=== PATIENT | male | born 1970 | race Hispanic/Latino ===

== ENCOUNTER 2019-05-07 07:52 | Emergency (ER) | payer BC ==
[2019-05-07] MEDS ORDERED: SODIUM CHLORIDE 0.9% (FLUSH) 10 ML SYG IV PRN (08:10)
[2019-05-07] MEDS ORDERED: ONDANSETRON INJ 4 MG/2 ML VIAL IV ONE (08:10)
--- NOTE | 2019-05-07 08:10 | ED.PDOC ---
History of Present Illness - General Chief Complaint: Abdominal Pain Stated Complaint: RUQ pain x couple months, worse over last 3 days Time Seen by Provider: 05/07/19 08:08 - History of Present Illness Initial Comments: 48M w/out PMHx presents w 6mo hx of intermitted sharp RUQ abd pain, now progressing over a week, has become constant and more severe over the last 24 hours. also w/ prod cough, chills, nausea. no documented fever, no tx attempted. Allergies/Adverse Reactions: Allergies NO KNOWN ALLERGY Allergy (Verified 05/07/19 08:10) Home Medications: Ambulatory Orders Cefixime 400 mg PO BID #14 cap 05/07/19 Ondansetron Odt [Zofran ODT] 4 mg PO Q6H PRN #10 tab 05/07/19 Tramadol HCl [Ultram] 50 mg PO Q6H PRN #15 tab 05/07/19 Review of Systems - Review of Systems Review of Systems: 05/07/19 08:34 General: Denies generalized weakness, fever, arthralgia/myalgia, does have chills HEENT: Denies sore throat, rhinorrhea Cardiovascular: Denies chest pain, palpitations Respiratory: Denies SOB, has cough Gastrointestinal: has abdominal pain, no vomiting, diarrhea : Denies dysuria, frequency Musculoskeletal: Denies extremity pain, extremity swelling Integument: Denies rash, itching Neuro: Denies focal weakness or numbness Psych: Denies depression, hallucinations. Family Medical History - Family History Paternal Grandparents Living Status: Hx Family Diabetes: Yes Hx Family Cancer: Yes - Breast Physical Exam - Physical Exam Comments: General Appearance: Patient is awake and alert. Skin: Warm and dry. No diaphoresis. No rash or other lesions. Head: Normocephalic/atraumatic. Eyes: PERRL, lids, conjunctiva and sclera unremarkable. EOMI intact. ENT: No nasal discharge. Oropharynx. Without erythema, exudate, lesions. Moist mucous membranes. Neck: Supple. No LAD. No tenderness. No JVD noted. Respiratory: Normal rate and effort. Breath sounds clear bilaterally. Cardiovascular: Regular rate. Heart sounds normal. No murmur. GI: Abdomen soft, non-distended with a focal area of discomfort in the RUQ area, medial. neg Leon's. No rebound/guarding. Bowel sounds normal. Back: No tenderness Musculoskeletal: Extremities- Normal range of motion. No effusion, cyanosis, edema. Neurological: Alert. No facial palsy. Speech clear. Gag intact. No motor deficit, str symmetric. No sensory deficit. Progress - Progress Progress: 05/07/19 08:33 Vital Signs - 24 hr 05/07/19 07:55 Temperature 96.4 F L Pulse Rate [ 65 Pulse ox] Respiratory 18 Rate Blood Pressure 113/82 [L brachial] O2 Sat by Pulse 99 Oximetry 05/07/19 11:40 patient is feeling much better after medications, tolerating PO, ambulating. Have discussed results with Gen Harper, Dr. Howard and patient and family, all parties are comfortable with a dose of antibiotics here, trial of home observation, with close follow-up in the office tomorrow. ED warnings given. - Results/Orders Results/Orders: 05/07/19 08:10 Sodium Chloride 0.9% (Flush) [Saline Flush Syringe] 10 ml IV PRN PRN 05/07/19 09:19 Hold Metformin x 48Hrs [id number] 05/07/19 11:33 cefTRIAXone SODIUM [Rocephin] 2 gm Sodium Chl 0.9% 100Ml Mini-Bag [NS 100ml MINI-BAG+] 100 ml IVPB ONCE 05/07/19 11:38 URINALYSIS Stat Laboratory Results WBC 6.2 K/mm3 (4.8-10.8) 05/07/19 08:22 RBC 5.48 M/mm3 (4.70-6.10) 05/07/19 08:22 Hgb 15.6 gm/dL (14.0-18.0) 05/07/19 08:22 Hct 45.7 % (42.0-52.0) 05/07/19 08:22 MCV 83.4 fl (80.0-94.0) 05/07/19 08:22 MCH 28.5 pg (27.0-31.0) 05/07/19 08:22 MCHC 34.2 g/dL (33.0-37.0) 05/07/19 08:22 RDW 13.1 % (11.5-14.5) 05/07/19 08:22 Plt Count 176 K/mm3 (130-400) 05/07/19 08:22 MPV 8.4 fl (7.40-10.4) 05/07/19 08:22 Absolute Neuts (auto) 4.40 K/uL (1.8-6.8) 05/07/19 08:22 Absolute Lymphs (auto) 1.30 K/uL (1.0-3.4) 05/07/19 08:22 Absolute Monos (auto) 0.50 K/uL (0.2-0.8) 05/07/19 08:22 Absolute Eos (auto) 0.00 K/uL (0.0-0.4) 05/07/19 08:22 Absolute Basos (auto) 0.00 K/uL (0.0-0.1) 05/07/19 08:22 Neutrophils % 71.1 % (42.0-78.0) 05/07/19 08:22 Lymphocytes % 20.5 % (20.0-50.0) 05/07/19 08:22 Monocytes % 7.9 % (2.0-9.0) 05/07/19 08:22 Eosinophils % 0.2 % (1.0-5.0) L 05/07/19 08:22 Basophils % 0.3 % (0.0-2.0) 05/07/19 08:22 Sodium 136 mmol/L (135-145) 05/07/19 08:22 Potassium 3.6 mmol/L (3.6-5.0) 05/07/19 08:22 Chloride 97 mmol/L (101-111) L 05/07/19 08:22 Carbon Dioxide 28 mmol/L (21-31) 05/07/19 08:22 Anion Gap 14.6 (12-18) 05/07/19 08:22 BUN 14 mg/dL (7-18) 05/07/19 08:22 Creatinine 0.85 mg/dL (0.6-1.3) 05/07/19 08:22 BUN/Creatinine Ratio 16.5 (10-20) 05/07/19 08:22 Random Glucose 115 mg/dL (70-105) H 05/07/19 08:22 Serum Osmolality 273.3 mOsm/L (275-295) L 05/07/19 08:22 Calcium 9.2 mg/dL (8.4-10.2) 05/07/19 08:22 Total Bilirubin 0.9 mg/dL (0.2-1.0) 05/07/19 08:22 Direct Bilirubin 0.2 mg/dL (0-0.2) 05/07/19 08:22 Indirect Bilirubin 0.7 mg/dL (0.2-0.8) 05/07/19 08:22 AST 66 IU/L (10-42) H 05/07/19 08:22 ALT 151 IU/L (10-60) H 05/07/19 08:22 Alkaline Phosphatase 64 IU/L (42-121) 05/07/19 08:22 Serum Total Protein 7.9 gm/dL (6.4-8.2) 05/07/19 08:22 Albumin 4.0 g/dl (3.2-5.5) 05/07/19 08:22 Lipase 30 U/L (22-51) 05/07/19 08:22 CT scan w/ gallbladder hydrops, stones including one at the neck, no wall edema. Departure - Departure Clinical Impression: Abdominal pain, Cholecystitis, Cholelithiasis Disposition: Discharge to Home or Self Care Condition: Good Departure Forms: ED Discharge - Pt. Copy, Patient Portal Self Enrollment Instructions: DI for Abdominal Pain-Adult Referrals: Jose Alberto Howard MD [Active Staff] - 05/08/19 1:00 pm Prescriptions: Cefixime 400 mg PO BID #14 cap Ondansetron Odt [Zofran ODT] 4 mg PO Q6H PRN #10 tab PRN Reason: Nausea Tramadol HCl [Ultram] 50 mg PO Q6H PRN #15 tab PRN Reason: Pain Home Medications: Ambulatory Orders Cefixime 400 mg PO BID #14 cap 05/07/19 Ondansetron Odt [Zofran ODT] 4 mg PO Q6H PRN #10 tab 05/07/19 Tramadol HCl [Ultram] 50 mg PO Q6H PRN #15 tab 05/07/19
[2019-05-07] MEDS ORDERED: MORPHINE SULFATE INJ 10 MG/ML VIAL IV ONE (08:11)
[2019-05-07 08:17] VITALS: TEMP 96.4
[2019-05-07] MEDS ORDERED: traMADol HCL 50 MG TAB PO ONE ×2 (10:25→12:28)
--- NOTE | 2019-05-07 10:50 | CT ---
PROCEDURE: CT Abdomen and Pelvis With Intravenous Contrast CLINICAL INDICATION: The patient is 48 years old and is Male; MEP, RUQ pain for months, now persist, tender MAIN TECHNIQUE: Axial computed tomography images of the abdomen and pelvis with intravenous contrast. Sagittal and coronal reformatted images were created and reviewed. This CT exam was performed using one or more of the following dose reduction techniques: automated exposure control, adjustment of the mA and/or kV according to patient size, and/or use of iterative reconstruction technique. COMPARISON: No relevant prior studies available. FINDINGS: LUNG BASES: Lung bases are unremarkable. ABDOMEN: LIVER: Hepatic steatosis is identified. Within segment 7, abutting the posterior capsule, there is a 1.8 cm discontiguously peripherally enhancing lesion which is almost undoubtedly a benign hemangioma. Within the medial inferior liver tip, there is a 1.6 cm lesion which also has the appearance of a small benign hemangioma. GALLBLADDER AND BILE DUCTS: There is marked and severe gallbladder hydrops. There are large calcified gallstones in the fundus and at the gallbladder neck. No pericholecystic inflammation. PANCREAS: There are mild fatty involutional changes of the pancreas. NO findings to suggest pancreatitis. SPLEEN: Unremarkable. No splenomegaly. No splenic lesion noted. ADRENALS: Unremarkable. No mass. KIDNEYS AND URETERS: Unremarkable. No solid mass. No hydronephrosis. STOMACH AND BOWEL: There is oral contrast within the stomach. There is no evidence of diverticulitis. There is no evidence of bowel obstruction. PELVIS: APPENDIX: The appendix is visualized and is normal in appearance. BLADDER: The urinary bladder is underdistended. It appears to be mildly thick-walled, however. REPRODUCTIVE: Unremarkable as visualized. ABDOMEN and PELVIS: INTRAPERITONEAL SPACE: Unremarkable. No free air. No significant fluid collection. BONES/JOINTS: There are bilateral pars defects at L5-S1 with associated spondylolisthesis SOFT TISSUES: There is rectus diastases of the anterior abdominal wall. Bilateral fat-containing inguinal hernias are noted. VASCULATURE: Unremarkable. No abdominal aortic aneurysm. LYMPH NODES: Unremarkable. No significant retroperitoneal or pelvic lymphadenopathy. IMPRESSION: There is marked and severe gallbladder hydrops. There are large calcified gallstones in the fundus and at the gallbladder neck. No pericholecystic inflammation. However, I am still concerned for acute cholecystitis. Confirmation could be obtained with HIDA scan if necessary. Electronically signed by: Jerald Mackay MD 05/07/2019 10:48 AM OBSTETRICS SCRUB NURSE
[2019-05-07] MEDS ORDERED: cefTRIAXone SODIUM 2 GM in SODIUM CHL 0.9% 100ML MINI-BAG 100 ML IVPB ONE (11:33)
[2019-05-07] MEDS ORDERED: SODIUM CHL 0.9% 100ML MINI-BAG 100 ML IVPB ONE (11:38)
[2019-05-07 13:10] VITALS: BP 109/66; O2SAT 96
== END 2019-05-07 13:09 | disposition home or self-care (01) ==
LOC: ER 07:52
DX: K80.10 Calculus of gallbladder with chronic cholecystitis without obstruction (principal)
CPT/HCPCS: 36415; 74177; 80048; 80076; 81001; 83690; 85025; J0696; J2270; J2405; J7050

== ENCOUNTER 2019-05-11 05:36 | Day surgery (SDC) | payer BC ==
[2019-05-11] MEDS ORDERED: SODIUM CHLORIDE 0.9% 50 ML VIAL ONE (07:00)
[2019-05-11] MEDS ORDERED: raNITIdine HCL INJ 25 MG/ML VIAL ONE (07:00)
[2019-05-11] MEDS ORDERED: LIDOCAINE 1% 10 ML VIAL INJ ONE (07:00)
[2019-05-11] MEDS ORDERED: PROPOFOL 200 MG/20 ML VIAL IV ONE (07:00)
[2019-05-11] MEDS ORDERED: DEXAMETHASONE INJ 10 MG/ML VIAL ONE (07:00)
[2019-05-11] MEDS ORDERED: ceFAZolin SODIUM 1 GM VIAL ONE ×2 (07:02→07:03)
[2019-05-11] MEDS ORDERED: LACTATED RINGERS 1,000 ML ONE (07:02)
[2019-05-11] MEDS ORDERED: SODIUM CHL 0.9% 100ML MINI-BAG 100 ML IVPB ONE (07:02)
[2019-05-11] MEDS ORDERED: HEPARIN SODIUM (PORCINE) 10,000 UNITS/ML VIAL ONE (09:22)
[2019-05-11] MEDS ORDERED: BUPIVACAINE 0.25% W/EPI 50 ML VIAL INJ ONE (09:22)
[2019-05-11] MEDS ORDERED: DEXMEDETOMIDINE HCL 200 MCG/2 ML INJ IV ONE (09:24)
[2019-05-11] MEDS ORDERED: ROCURONIUM BROMIDE 10 MG/ML VIAL ONE ×2 (09:25→10:58)
[2019-05-11] MEDS ORDERED: KETAMINE HCL 100 MG/ML VIAL ONE (09:25)
[2019-05-11] MEDS ORDERED: fentaNYL CITRATE INJ 50 MCG/ML AMP ONE (09:25)
[2019-05-11] MEDS ORDERED: MIDAZOLAM INJ 2 MG/2 ML VIAL ONE (09:25)
[2019-05-11] MEDS ORDERED: SUGAMMADEX SODIUM 200 MG/2 ML VIAL IV ONE ×2 (09:34→14:08)
[2019-05-11] MEDS ORDERED: HEPARIN SODIUM (PORCINE) 10,000 UNITS/ML VIAL IRRIG ONE (09:51)
[2019-05-11] MEDS ORDERED: IOPROMIDE INJ 300 MG/ML 50 ML INJ ONE (09:51)
[2019-05-11] MEDS ORDERED: BUPIVACAINE 0.25% W/EPI 50 ML VIAL SUBCU ONE (09:51)
[2019-05-11] MEDS ORDERED: HYDROmorphone HCL INJ 2 MG/ML VIAL ONE ×3 (10:53→13:55)
[2019-05-11] MEDS ORDERED: ELECTROLYTE-A 1,000 ML IVS ONE (11:29)
--- NOTE | 2019-05-11 13:22 | RAD ---
EXAM DESCRIPTION: Fluoroscopy Up to 1Hr CLINICAL HISTORY: 48 years Male, IOC COMPARISON: None. FINDINGS: Total fluoroscopy time 33 seconds, 4 fluoroscopic images For fluoroscopic views of an intraoperative cholangiogram are included. Contrast injected into the cystic duct remnant fills the central intrahepatic and extra hepatic biliary ducts without filling defect or stricture. No biliary duct dilation. Contrast is present in the duodenum. IMPRESSION: Normal intraoperative cholangiogram. Electronically signed by: Nam Sexton MD 05/11/2019 1:20 PM DENTAL LABORATORY MANAGER
--- NOTE | 2019-05-11 13:59 | OP ---
DATE OF PROCEDURE: 05/11/19 PREOPERATIVE DIAGNOSIS: 1. Symptomatic cholelithiasis. 2. Fatty infiltration of the liver. POSTOPERATIVE DIAGNOSIS: 1. Symptomatic cholelithiasis. 2. Fatty infiltration of the liver. 3. Acute and chronic cholecystitis. PROCEDURE: 1. Laparoscopic cholecystectomy with intraoperative cholangiography using fluoroscopy. 2. Wedge biopsy, right lobe over liver. SURGEON: Jose Alberto Howard MD. CUSTOMER RELATIONS ASSISTANT: None. ANESTHESIA: Local infiltration of 0.25% Marcaine with epinephrine and general endotracheal anesthesia. INDICATION: The patient is a 48-year-old male who has had recent significant pain in the right upper quadrant with nausea associated with a fatty diet. There is no history of hepatitis or jaundice. CT scan in the Emergency Room revealed multiple gallstones without serious signs of acute cholecystitis. Also, probable fatty infiltration of the liver. The patient was brought to the Surgical Suite today for cholecystectomy with cholangiography and wedge biopsy of right lobe of the liver. FINDINGS: The wedge biopsy of the liver was performed and the specimen was obtained. Hemostasis was excellent in the biopsy site. The gallbladder was very thickened and edematous. There were multiple dense adhesions to the body and neck of the gallbladder. Intraoperative cholangiography revealed slow flow into the duodenum without a definite meniscus sign in the distal bile duct. There were no filling defects or strictures identified in the bile duct. The gallbladder also had multiple stones. No other pathology was identified. DESCRIPTION OF PROCEDURE: After adequate general endotracheal anesthesia was obtained, the patient was prepped and draped in the usual sterile manner. Surgical time-out was taken. The infraumbilical area was infiltrated with local anesthesia. A curvilinear incision was fashioned and carried down through the subcutaneous tissue to the midline fascia. Traction sutures were placed on either side of the midline. A small incision was made in the midline fascia and the peritoneum was opened bluntly. Sorin trocar was introduced under direct vision into the abdominal cavity and fixed in place. CO2 was then insufflated until a pressure of 12 mmHg was reached and the abdomen was tympanitic in all four quadrants. When this was done, the laparoscope was introduced. The abdomen was inspected with the previously noted findings. The patient was then placed in reverse Trendelenburg position and turned to the left side. The upper abdominal ports were placed under direct vision. The gallbladder was inspected and we began to take down adhesions. However, we could not grasp the gallbladder, so the Storz needle was introduced and 90 mL of thick, dark bile was aspirated. The gallbladder was then grasped and retracted anteriorly and laterally. The adhesions were taken down using blunt dissection and electrocautery. When this was done, eventually the neck of the gallbladder was grasped, retracted laterally. The triangle of Calot was then explored with the cystic duct identified and isolated. The cystic duct was hemoclipped once proximally. A small incision was made in the cystic duct. The cholangiogram catheter was introduced through a separate stab wound in the right upper quadrant, introduced into the cystic duct and clipped in place. Cholangiograms were then taken using fluoroscopy which revealed slow, but definite flow into the duodenum with no obvious meniscus sign in the distal bile duct or stricture. No other filling defect was identified. At this time, the cystic duct catheter was removed. The cystic duct was hemoclipped three times and divided between the hemoclips. The cystic artery was identified, actually two vessels were identified. These were clipped and divided. When this was done, the gallbladder was then dissected free from the gallbladder bed of the liver with some difficulty due to the edema causing or fog or smoke or steam. Eventually, the gallbladder was dissected free from the gallbladder bed of the liver. An attempt to put it into the EndoCatch bag showed it did not quite fit, so we extended the incision inferiorly at the umbilicus. Eventually, the neck of the gallbladder was grasped with the grasping forceps and it was brought up with some difficulty through the incision by opening, aspirating fluid and removing stones. When it was removed, the bag was also removed. When this was done, the port was placed back in position after irrigation of the wound. The upper abdomen was then irrigated copiously with saline. The effluent was noted to be blood-tinged, but with no active bleeding. At this point, cautery was turned up to 50 and the wedge biopsy of the right lobe of the liver was performed medial to the gallbladder bed. It was sent for pathological evaluation. Hemostasis was obtained with electrocautery. When hemostasis was noted to be adequate, the specimen was removed. Several clots were removed manually, then the subhepatic space and subphrenic space on the right were irrigated copiously with saline. The effluent was noted to be blood-tinged, but clear. No active bleeding was identified in the gallbladder bed of the liver. The flo hepatis revealed no bleeding or bile leak. At this time, the upper abdominal ports were removed under direct vision and hemostasis was obtained in the middle subcostal port site with electrocautery. When this was done, the CO2, the laparoscope and the infraumbilical port were removed. The infraumbilical port site fascia was approximated with two [id number] sutures of 0 Vicryl. Subcutaneous tissue was irrigated with saline. Skin edges were approximated with skin feliciano. Sterile dressings were applied. The patient was awakened and taken to the Recovery Room in good and stable condition. Estimated blood loss was approximately 150 mL. All sponge, needle and instrument counts were correct. #[id number] [facility]
[2019-05-11] MEDS ORDERED: ONDANSETRON ODT 8 MG TAB ONE (16:20)
[2019-05-11 17:03] VITALS: BP 128/82; TEMP 96.7; O2SAT 96
== END 2019-05-11 16:50 | disposition home or self-care (01) ==
LOC: AMB 05:36
PROVIDERS: ATTEND Surgery
DX: K80.12 Calculus of gallbladder with acute and chronic cholecystitis without obstruction (principal); K76.0 Fatty (change of) liver, not elsewhere classified; K66.0 Peritoneal adhesions (postprocedural) (postinfection)
CPT/HCPCS: 00790; 36415; 36416; 47001; 47563; 76000; 80053; 81001; 82948; 85025; A4216; J0690; J1100; J1170; J1644; J2250; J2780; J3010; J3490; J7050; J7120

== ENCOUNTER 2019-08-03 02:44 | Emergency (ER) | payer BC ==
[2019-08-03] MEDS ORDERED: SODIUM CHLORIDE 0.9% (FLUSH) 10 ML SYG IV PRN (03:32)
[2019-08-03] MEDS ORDERED: SODIUM CHLORIDE 0.9% 1000ML 1,000 ML IVS ONE (03:32)
[2019-08-03] MEDS ORDERED: ONDANSETRON INJ 4 MG/2 ML VIAL IV ONE (03:38)
[2019-08-03] MEDS ORDERED: KETOROLAC TROMETHAMINE INJ 30 MG/ML VIAL IV ONE (03:38)
--- NOTE | 2019-08-03 04:19 | CT ---
CT abdomen and pelvis without contrast on 08/03/2019 CLINICAL INDICATION: Right-sided back pain radiating to groin TECHNIQUE: Multiple axial images are obtained throughout the abdomen and pelvis without the administration of contrast. This exam was performed according to our departmental dose-optimization program, which includes automated exposure control, adjustment of the mA and/or kV according to patient size and/or use of iterative reconstruction technique. Total DLP is 1494.81 mGy*cm. COMPARISON: 05/07/2019 FINDINGS: Of note, this examination was performed in prone positioning. Abdomen: There is minimal basilar atelectasis. The lung bases are otherwise clear. The patient is status post interval cholecystectomy. There is mild right hydronephrosis and hydroureter to the level of a 3 mm right distal ureteral stone just above the right UVJ in the right pelvis. There are no other renal or ureteral stones. The unenhanced solid abdominal organs are otherwise unremarkable. There is no abdominal adenopathy. There is no free fluid or free air within the abdomen. The abdominal portion of the GI tract is unremarkable. Pelvis: There are bilateral inguinal hernias containing only fat. There is rectal wall thickening suggesting proctitis. Pelvic portion of the GI tract including the appendix is otherwise unremarkable. The prostate is mildly enlarged, please correlate with physical exam and PSA levels. There is bladder wall thickening that may just be due to underdistention but would recommend correlation with urinalysis to exclude infection as a cause. No free fluid is noted in the pelvis. There is no pelvic adenopathy. Degenerative changes are noted in the spine. Bilateral pars defects are noted at L5 with grade 1 spondylolisthesis of L5-S1. IMPRESSION: 1. Mild right hydronephrosis and hydroureter to the level of a 3 mm right distal ureteral stone just above the right UVJ. 2. Rectal wall thickening suggesting proctitis. 3. Bladder wall thickening that may be related to cystitis, recommend correlation with urinalysis. Electronically signed by: Darryl Babb 08/03/2019 4:18 AM CDT
--- NOTE | 2019-08-03 05:12 | ED.PDOC ---
History of Present Illness - General Chief Complaint: Abdominal Pain Stated Complaint: rlq pain, frequent urination Time Seen by Provider: 08/03/19 03:29 Information Source: patient, RN notes reviewed, Vital Signs reviewed, family - Exam Limitations: no limitations - History of Present Illness Initial Comments: Patient is a 48-year-old male who presents with acute onset of right lower quadrant pain starting yesterday. Onset was sudden, it is sharp and stabbing in nature, it is severe in intensity, it is waxing and waning. Abdominal Pain Onset Location: RLQ Pain Radiation: groin Quality: severe, stabbing, waxing/waning Timing/Duration: 24 hours Improving Factors: nothing Worsening Factors: nothing Associated Symptoms: denies symptoms Review of Systems - Review of Systems Constitutional: States: no symptoms reported, see HPI EENTM: States: no symptoms reported Respiratory: States: no symptoms reported Cardiology: States: no symptoms reported Gastrointestinal/Abdominal: States: abdominal pain, nausea Genitourinary: States: frequency Musculoskeletal: States: no symptoms reported Skin: States: no symptoms reported Neurological: States: no symptoms reported Endocrine: States: no symptoms reported Hematologic/Lymphatic: States: no symptoms reported All other Systems: Reviewed and Negative Past Medical History (General) - Patient Medical History Hx Stroke: No Hx of COPD: No Hx Cardiac Disorders: No Hx Congestive Heart Failure: No Hx Hypertension: No Hx Diabetes: No Hx Cancer: No Hx MRSA: No Surgical History: cholecystectomy - Vaccination History Hx Tetanus, Diphtheria Vaccination: No Hx Influenza Vaccination: No Hx Pneumococcal Vaccination: No - Social History Hx Tobacco Use: No Hx Alcohol Use: No Hx Substance Use: No Hx Substance Use Treatment: No Hx Depression: No - Female History Patient : No Family Medical History - Family History Paternal Grandparents Living Status: Hx Family Diabetes: Yes Hx Family Cancer: Yes - Breast Physical Exam - Physical Exam General Appearance: Alert, Anxious, Obvious distress, Well Developed, Well Groomed, Well Hydrated, Well Nourished Eyes, Ears, Nose, Throat Exam: PERRL/EOMI, normal ENT inspection, pharynx normal Neck: non-tender, full range of motion, supple, normal inspection Respiratory: chest non-tender, lungs clear, normal breath sounds, no respiratory distress, no accessory muscle use Cardiovascular/Chest: normal peripheral pulses, regular rate, rhythm, no edema, no gallop, no JVD, no murmur Peripheral Pulses: No deficit Gastrointestinal/Abdominal: normal bowel sounds, soft, tenderness - Right lower quadrant, vague discomfort to palpation. No peritoneal signs. 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 08/03/19 05:15 Pain is markedly improved after IV Toradol and IV fluids. Have discussed with patient and his the diagnosis of kidney stone. Plan on discharge home with a to go pack of pain meds and follow-up with his PCP. I discussed discharge home the remainder the plan and patient is agreeable. Patient and voiced understanding. Malik Quintanilla M.D. #[id number] - Results/Orders Results/Orders: 08/03/19 03:32 IV Care:Saline Lock per Protoc QSHIFT Sodium Chloride 0.9% (Flush) [Saline Flush Syringe] 10 ml IV PRN PRN Laboratory Results - last 24 hr 08/03/19 08/03/19 08/03/19 02:53 03:57 03:57 WBC 10.2 RBC 5.46 Hgb 16.0 Hct 45.8 MCV 84.0 MCH 29.4 MCHC 35.0 RDW 13.2 Plt Count 177 MPV 8.6 Absolute Neuts (auto) 9.00 H Absolute Lymphs (auto) 0.80 L Absolute Monos (auto) 0.30 Absolute Eos (auto) 0.00 Absolute Basos (auto) 0.00 Neutrophils % 88.1 H Lymphocytes % 7.9 L Monocytes % 3.3 Eosinophils % 0.4 L Basophils % 0.3 Sodium 139 Potassium 3.4 L Chloride 105 Carbon Dioxide 25 Anion Gap 12.4 BUN 23 H Creatinine 1.43 H BUN/Creatinine Ratio 16.1 Random Glucose 145 H Serum Osmolality 283.8 Calcium 9.3 Total Bilirubin Direct Bilirubin Indirect Bilirubin AST ALT Alkaline Phosphatase Serum Total Protein Albumin Lipase Urine Color Yellow Urine Appearance Cloudy Urine pH 5.5 Ur Specific Girard >= 1.030 Urine Protein 100 H Urine Glucose (UA) Negative Urine Ketones 40 H Urine Blood Large H Urine Nitrite Negative Urine Bilirubin Small H Urine Urobilinogen 0.2 Ur Leukocyte Esterase Negative Urine RBC 20-30 H Urine WBC 0 Ur Epithelial Cells 0 Calcium Oxalate Crystal 1+ Urine Bacteria Rare Urine Mucus Trace Urine Yeast 1+ budding 08/03/19 03:57 WBC RBC Hgb Hct MCV MCH MCHC RDW Plt Count MPV Absolute Neuts (auto) Absolute Lymphs (auto) Absolute Monos (auto) Absolute Eos (auto) Absolute Basos (auto) Neutrophils % Lymphocytes % Monocytes % Eosinophils % Basophils % Sodium Potassium Chloride Carbon Dioxide Anion Gap BUN Creatinine BUN/Creatinine Ratio Random Glucose Serum Osmolality Calcium Total Bilirubin 0.7 Direct Bilirubin 0.1 Indirect Bilirubin 0.6 AST 25 ALT 35 Alkaline Phosphatase 49 Serum Total Protein 8.0 Albumin 4.4 Lipase 34 Urine Color Urine Appearance Urine pH Ur Specific Girard Urine Protein Urine Glucose (UA) Urine Ketones Urine Blood Urine Nitrite Urine Bilirubin Urine Urobilinogen Ur Leukocyte Esterase Urine RBC Urine WBC Ur Epithelial Cells Calcium Oxalate Crystal Urine Bacteria Urine Mucus Urine Yeast CT abdomen and pelvis without contrast on 08/03/2019 CLINICAL INDICATION: Right- sided back pain radiating to groin TECHNIQUE: Multiple axial images are obtained throughout the abdomen and pelvis without the administration of contrast. This exam was performed according to our departmental dose- optimization program, which includes automated exposure control, adjustment of the mA and/or kV according to patient size and/or use of iterative reconstruction technique. Total DLP is 1494.81 mGy*cm. COMPARISON: 05/07/2019 FINDINGS: Of note, this examination was performed in prone positioning. Abdomen: There is minimal basilar atelectasis. The lung bases are otherwise clear. The patient is status post interval cholecystectomy. There is mild right hydronephrosis and hydroureter to the level of a 3 mm right distal ureteral stone just above the right UVJ in the right pelvis. There are no other renal or ureteral stones. The unenhanced solid abdominal organs are otherwise unremarkable. There is no abdominal adenopathy. There is no free fluid or free air within the abdomen. The abdominal portion of the GI tract is unremarkable. Pelvis: There are bilateral inguinal hernias containing only fat. There is rectal wall thickening suggesting proctitis. Pelvic portion of the GI tract including the appendix is otherwise unremarkable. The prostate is mildly enlarged, please correlate with physical exam and PSA levels. There is bladder wall thickening that may just be due to underdistention but would recommend correlation with urinalysis to exclude infection as a cause. No free fluid is noted in the pelvis. There is no pelvic adenopathy. Degenerative changes are noted in the spine. Bilateral pars defects are noted at L5 with grade 1 spondylolisthesis of L5-S1. IMPRESSION: 1. Mild right hydronephrosis and hydroureter to the level of a 3 mm right distal ureteral stone just above the right UVJ. 2. Rectal wall thickening suggesting proctitis. 3. Bladder wall thickening that may be related to cystitis, recommend correlation with urinalysis. Electronically signed by: Darryl Babb 08/03/2019 4:18 AM Departure - Departure Clinical Impression: Ureterolithiasis Abdominal pain Qualifiers: Abdominal location: right lower quadrant Qualified Code(s): R10.31 - Right lower quadrant pain Hematuria Qualifiers: Hematuria type: other microscopic Qualified Code(s): R31.29 - Other microscopic hematuria; R31.2 - Other microscopic hematuria Time of Disposition: 05:18 Disposition: Discharge to Home or Self Care Condition: Good Departure Forms: ED Discharge - Pt. Copy, Patient Portal Self Enrollment Instructions: DI for Abdominal Pain-Adult, Kidney Stones (DC) Diet: resume usual diet Activity: increase activity as tolerated Referrals: Naeem Maguire MD [Active Staff] - 1-2 Days Prescriptions: Acetaminophen W/ Codeine [Tylenol W/ CODEINE #3] 1 tablet PO Q6H PRN #15 PRN Reason: Pain Ondansetron Odt [Zofran ODT] 4 mg PO Q6H #12 tab Home Medications: Ambulatory Orders Acetaminophen W/ Codeine [Tylenol W/ CODEINE #3] 1 tablet PO Q6H PRN #15 08/03/19 Ondansetron Odt [Zofran ODT] 4 mg PO Q6H #12 tab 08/03/19
[2019-08-03] MEDS ORDERED: ACETAMINOPHEN W/COD #3 TAB (ER Disp) PO ONE (05:22)
[2019-08-03] MEDS ORDERED: ONDANSETRON ODT (ER DISP) 8 MG TAB PO ONE (05:22)
[2019-08-03 05:43] VITALS: BP 113/82; TEMP 97.6; O2SAT 95
== END 2019-08-03 05:40 | disposition home or self-care (01) ==
LOC: ER 02:44
DX: N13.2 Hydronephrosis with renal and ureteral calculous obstruction (principal); R31.29 Other microscopic hematuria
CPT/HCPCS: 74176; 80048; 80076; 81001; 83690; 85025; J1885; J2405; J7030